=== PATIENT | female | born 1940 | race Caucasian/White ===

== ENCOUNTER 2024-01-27 15:27 | Emergency (ER) | payer OTHER, SELFPAY ==
[2024-01-27 15:41] VITALS: BP 163/80
[2024-01-27 16:24] LABS: % Basophils 0.6 % (0-2); % Eosinophils 3.3 % (0-6); % Immature Granulocytes 0.5 % (0-0.5); % Lymphocytes 30.8 % (20.5-51.1); % Monocytes 7.1 % (1.7-9.3); % Neutrophils 57.7 % (42.2-75.2); Absolute Eosinophils 0.2 10^3/uL (0-0.7); Absolute Monocytes 0.5 10^3/uL (0.1-0.6); Absolute Neutrophils 3.7 10^3/uL (1.4-6.5); Hemoglobin 13.5 g/dL (12.0-16.0); Mean Corp Hgb Conc. 34.6 g/dL (33.0-37.0); Mean Corpuscular Hgb 31.9 pg (27.0-31.0); Mean Corpuscular Volume 92.2 fL (81.0-99.0); Mean Platelet Volume 9.8 fL (7.4-10.4); Nucleated Red Blood Cells % 0 %; Platelet Count 212 10^3/uL (130-400); Red Blood Cell Count 4.23 10^6/uL (4.20-5.40); Red Cell Dist. Width 12.2 % (11.5-14.5); White Blood Cell Count 6.3 10^3/uL (4.8-10.8)
--- NOTE | 2024-01-27 16:52 | ED.GENMED ---
History of Present Illness
<Rebecca Cosby MD, Resident - Last Filed: 01/27/24 20:47>
General
Chief Complaint: Abdominal Symptoms
Source: patient and spouse
Exam Limitations: none
Time Seen by Provider: 01/27/24 16:22
Nursing documentation reviewed up to this point in time: agreed with
History of Present Illness
History of Present Illness:
83-year-old female history of A-fib on Eliquis, hypertension, hyperlipidemia who presented to the ED c/o abdominal pain with nausea x 3 hours. She had crackers and cream cheese with yogurt for lunch and shortly after developed worsening sharp,
crampy lower abdominal pain with nausea. She had a sensation of needing to have a bowel movement but had no success. She did have 1 episode of vomiting while in the ED. No sick contacts or recent antibiotic use. Last bowel movement was 5 days
ago. Patient used a fleets enema since onset of symptoms with no success. Recent COVID infection a few weeks ago with residual poor appetite and dysgeusia. She denies fever/chills, dysuria, urinary frequency, hematuria, back pain, or bloody stool.
Most recent colonoscopy in July revealed diverticulosis and benign polyp.
Past History
<Rebecca Cosby MD, Resident - Last Filed: 01/27/24 20:47>
Past History
ED Past Medical History: Arrthythmia (Afib), HTN and Hypercholesterolemia
ED Past Surgical History: Appendectomy, Cholecystectomy, Orthopedic (Left TKR) and Other (parathyroidectomy, ablation for afib)
Social History
Personal:
Living: with family
Family History
Family History: Other (not pertinent)
Review of Systems
<Rebecca Cosby MD, Resident - Last Filed: 01/27/24 20:47>
Review of Systems
Allergies reviewed?: Yes
Constitutional: Denies fever or chills
Respiratory: Denies cough or trouble breathing
Cardiac: Denies chest pain or palpitations
ABD/GI: Reports abdominal pain, nausea, vomiting and anorexia; Denies diarrhea or bloody stools
: Denies dysuria, frequency, flank pain, difficulty voiding or bleeding
Musculoskeletal: Denies back pain
Phy Exam
<Rebecca Cosby MD, Resident - Last Filed: 01/27/24 20:47>
General Physical Exam
General Presentation: well appearing and no apparent distress
General Skin: warm and dry
General Habitus: normal
General Mental: alert
General Hydration: appears well hydrated
Cardiovascular Exam
Cardiovascular Exam: regular rate/rhythm, no edema, no gallop and no murmur
Pulmonary Exam
Pulmonary Exam: lungs clear, no respiratory distress, no rales, no crackles, no rhonchi and no wheezing
Oxygen Status: room air
Gastrointestinal Exam
Gastrointestinal Exam: normal bowel sounds, soft, no organomegaly, non distended, no cva tenderness and tender (generalized tenderness)
Course
<Rebecca Cosby MD, Resident - Last Filed: 01/27/24 20:47>
Orders/Labs/Results
Orders:
Orders
01/27/24 15:46
Electrocardiogram (*1) Urgent
Reason for Study: Abdominal Pain
EKG- Treatment ONCE
01/27/24 15:53
CMP [Comprehensive Metabolic Panel] Urgent
Complete Blood Count/With Diff Urgent
Lipase Urgent
01/27/24 17:31
Ondansetron Injectable [Zofran] 4 mg IV NOW STA
01/27/24 17:32
0.9% Sodium Chloride 1000 ml [Nss] 1,000 ml IV BOLUS
01/27/24 18:13
Ketorolac [Toradol] 15 mg IV NOW STA
01/27/24 19:19
CT Abd/pel Without Iv Or Oral Urgent
Comment:
Reason For Exam: lower abdominal pain, allergy to dye
01/27/24 19:57
Amoxicillin 875 mg/Clav 125 mg [Augmentin 875 mg/125 mg] 1 tablet PO NOW STA
Abnormal Lab Results
01/27/24
15:53
MCH 31.9 H pg
(27.0-31.0)
Potassium 5.5 H mmol/L
(3.5-5.1)
BUN 25 H mg/dl
(7-17)
Glucose 150 H mg/dl
(70-99)
Total Protein 6.2 L g/dl
(6.3-8.2)
01/27/24 15:53
01/27/24 15:53
Vital Signs
Initial and Last Documented VS:
Initial Vital Signs
Temp Pulse Resp BP Pulse Ox
98.0 F 68 16 163/80 98
01/27/24 15:41 01/27/24 15:41 01/27/24 15:41 01/27/24 15:41 01/27/24 15:41
Last Documented Vital Signs
Temp Pulse Resp BP Pulse Ox
98.0 F 68 16 132/71 99
01/27/24 15:41 01/27/24 15:41 01/27/24 15:41 01/27/24 20:00 01/27/24 20:15
<Fadia Kraft, - Last Filed: 01/27/24 19:50>
Orders/Labs/Results
Orders:
Orders
01/27/24 15:46
Electrocardiogram (*1) Urgent
Reason for Study: Abdominal Pain
EKG- Treatment ONCE
01/27/24 15:53
CMP [Comprehensive Metabolic Panel] Urgent
Complete Blood Count/With Diff Urgent
Lipase Urgent
01/27/24 17:31
Ondansetron Injectable [Zofran] 4 mg IV NOW STA
01/27/24 17:32
0.9% Sodium Chloride 1000 ml [Nss] 1,000 ml IV BOLUS
01/27/24 18:13
Ketorolac [Toradol] 15 mg IV NOW STA
01/27/24 19:19
CT Abd/pel Without Iv Or Oral Urgent
Comment:
Reason For Exam: lower abdominal pain, allergy to dye
01/27/24 19:57
Amoxicillin 875 mg/Clav 125 mg [Augmentin 875 mg/125 mg] 1 tablet PO NOW STA
Abnormal Lab Results
01/27/24
15:53
MCH 31.9 H pg
(27.0-31.0)
Potassium 5.5 H mmol/L
(3.5-5.1)
BUN 25 H mg/dl
(7-17)
Glucose 150 H mg/dl
(70-99)
Total Protein 6.2 L g/dl
(6.3-8.2)
01/27/24 15:53
01/27/24 15:53
Vital Signs
Initial and Last Documented VS:
Initial Vital Signs
Temp Pulse Resp BP Pulse Ox
98.0 F 68 16 163/80 98
01/27/24 15:41 01/27/24 15:41 01/27/24 15:41 01/27/24 15:41 01/27/24 15:41
Last Documented Vital Signs
Temp Pulse Resp BP Pulse Ox
98.0 F 68 16 132/71 99
01/27/24 15:41 01/27/24 15:41 01/27/24 15:41 01/27/24 20:00 01/27/24 20:15
<Rebecca Cosby MD, Resident - Last Filed: 01/27/24 20:47>
MDM/Problems Addressed
Differential Diagnosis Includes:
Cystitis, diverticulitis, gastroenteritis, pancreatitis, colitis, intestinal obstruction
MDM/Problems Addressed:
Patient appears well, in no acute distress. CBC unremarkable, elevated potassium with elevated BUN likely secondary to dehydration. Lipase normal. EKG normal sinus rhythm.
Pt reports soft non-bloody bowel movement while in ED with ongoing symptoms.
Will give IV fluids. Will give Zofran to manage nausea. Given constipation x 5 days, and history of known diverticulosis on recent colonoscopy, will order CT abdomen and pelvis with IV contrast.
CT abd/pelvis (without contrast for history of adverse reaction with contrast) showed acute uncomplicated sigmoid diverticulitis. Augmentin started in ED. Patient was able to tolerate PO medication. Appears stable for discharge. Aftercare
instructions provided to patient. Discussed reasons to return or see her physician. Will discharge home with 7-day course of Augmentin, to follow up with PCP shortly
<Rebecca Cosby MD, Resident - Last Filed: 01/27/24 20:47>
*Critical Care Note
Total Time (30-74mins, 75-104mins- exclusive of procedures): Not Applicable
ED Attending Note
<Rebecca Cosby MD, Resident - Last Filed: 01/27/24 20:47>
-
Portions of this chart may have been created with voice recognition software.� Occasional wrong word or��sound alike� substitutions may have occurred due to the inherent limitations of voice recognition software.
<Fadia Kraft DO - Last Filed: 01/27/24 19:50>
ED Attending Note
Patient seen and examined by attending physician: Yes
I performed the substantive portion of visit, reviewed & personally made and approve the management plan that is documented in note by myself or SIN.: Yes
I performed a history and physical exam of patient and discussed management with resident, I reviewed resident's note and agree with documented findings and plan of care.: Yes
ED Attending Note:
83-year-old female with history of A-fib on Eliquis, hypertension, hyperlipidemia presenting to the emergency department for abdominal pain. Patient reports symptoms are about 3 hours prior to arrival with severe lower abdominal cramping and
nausea. Does report some constipation, last bowel movement was 5 days ago, however gave her an enema today and had a bowel movement here. Reports history of appendectomy and cholecystectomy. Denies fever. Vital signs on arrival are significant
for mild hypertension.
On exam, patient is well-appearing, no acute distress or discomfort. Benign cardiac and pulmonary exam. On abdominal exam, generalized tenderness, most focal to the right lower quadrant and left lower quadrant. Differential considerations include
bowel obstruction versus enteritis versus gastroenteritis versus diverticulitis versus cystitis. Plan for laboratory analysis, urinalysis, CT abdominal imaging. IV fluids, Zofran, Toradol administered for symptoms.
19:45 -CT is consistent with acute uncomplicated diverticulitis. Feel the patient is a candidate for oral antibiotics, hemodynamic stability. Will start on Augmentin. Otherwise feel stable for discharge, however strict return precautions were
communicated and patient verbalized understanding
Discharge Plan
Departure
Patient Disposition: Home (Routine Discharge)
Date of Disposition: 01/27/24
Time of Disposition: 20:45
Patient with high blood pressure during this ER visit?: Yes
Discharge Problem:
Diverticulitis
Instructions: Diverticulitis (DC), BLOOD PRESSURE
Prescriptions:
New
amoxicillin-pot clavulanate 875-125 mg tablet
1 tab PO BID Qty: 13 0RF
Referrals:
Owen Kraft MD [Family Provider] -
Activity Restrictions/Additional Instructions:
Follow up with PCP shortly
Interventions
Interventions:
*Risk Screen - Suicide Last Done: 01/27/24 17:57
*General Assessment Last Done: 01/27/24 17:57
*Neglect/Abuse Screening Last Done: 01/27/24 17:57
ED- Fall Risk Assessment Last Done: 01/27/24 17:57
*ED COVID-19 Vaccine History Last Done: 01/27/24 17:57
PP-Lkpnwg-Ijnbrkepvn Assessment Last Done: 01/27/24 17:57
Discharge Date and Time
Print Language: TAMAZIGHT
[2024-01-27 16:58] LABS: ALT (SGPT) 35 U/L (0-35); AST (SGOT) 35 U/L (14-36); Albumin 4.3 g/dl (3.5-5.0); Alkaline Phosphatase 50 U/L (38-126); Blood Urea Nitrogen 25 mg/dl (7-17); Carbon Dioxide 23 mmol/L (22-30); Chloride 101 mmol/L (98-107); Glucose 150 mg/dl (70-99); Lipase 29 U/L (23-300); Potassium 5.5 mmol/L (3.5-5.1); Sodium 137 mmol/L (135-145); Total Bilirubin 0.4 mg/dl (0.2-1.3); Total Protein 6.2 g/dl (6.3-8.2); eGFR > 60.00
[2024-01-27] MEDS: ZOFRAN 4 MG IV (17:47)
[2024-01-27] MEDS: NSS 1000 IV (17:47)
[2024-01-27] MEDS: TORADOL 15 MG IV (18:40)
[2024-01-27 19:49] VITALS: BP 140/73
[2024-01-27 20:00] VITALS: BP 132/71
[2024-01-27] MEDS: AUGMENTIN 875 MG/125 MG 1 TABLET PO (20:24)
== END 2024-01-27 21:03 | disposition home or self-care (01) ==
LOC: EMR 15:27
PROVIDERS: EMERGENCY PHYSICIAN Student in an Organized Health Care Education/Training Program; FAMILY PHYSICIAN Internal Medicine
DX: K57.32 Diverticulitis of large intestine without perforation or abscess without bleeding (principal); R11.2 Nausea with vomiting, unspecified; I48.91 Unspecified atrial fibrillation; I10 Essential (primary) hypertension; E78.00 Pure hypercholesterolemia, unspecified; M06.9 Rheumatoid arthritis, unspecified; Z86.16 Personal history of COVID-19; Z79.01 Long term (current) use of anticoagulants; Z90.49 Acquired absence of other specified parts of digestive tract
CPT/HCPCS: 99284; 96374; 96375; 96361; 74176; 80053; 83690; 85025; 93005

== ENCOUNTER 2025-04-19 15:14 | Emergency (ER) | payer OTHER, SELFPAY ==
[2025-04-19 15:18] VITALS: BP 175/89
--- NOTE | 2025-04-19 15:51 | ED.GENMED ---
History of Present Illness
General
Chief Complaint: Abdominal Pain
Source: patient and spouse
Exam Limitations: none
Time Seen by Provider: 04/19/25 15:39
Nursing documentation reviewed up to this point in time: agreed with
History of Present Illness
History of Present Illness:
Patient is an 84-year-old female with history atrial fibrillation on Eliquis, hypertension, hyperlipidemia who presents to the emergency department for evaluation of lower abdominal pain. Patient states symptoms started somewhat acutely around 1 PM
today while at home. She describes a sharp, stabbing pain in her central lower abdomen quadrant. She denies any radiation around the back. She has had a continuous feeling of eating had a bowel movement as well as nausea. No dysuria or
hematuria. No vomiting or fever. No chest pain or shortness of breath.
Patient does have a history of diverticulitis but 1 year ago and states the symptoms feel very similar.
Patient states she had oatmeal for breakfast. She had not yet eaten lunch when pain began.
Past History
Past History
ED Past Medical History: Arrthythmia (Afib), HTN and Hypercholesterolemia
ED Past Surgical History: Appendectomy, Cholecystectomy, Orthopedic (Left TKR) and Other (parathyroidectomy, ablation for afib)
Social History
Tobacco: Non-smoker
Alcohol: None
Drug: None
Personal:
Living: with family
Family History
Family History: Other (not pertinent)
Review of Systems
Review of Systems
Allergies reviewed?: Yes
All Other Systems: ROS reviewed and negative except as documented in HPI and ROS
Phy Exam
Physical Exam
Physical Exam:
Vitals: Hypertensive, otherwise vital signs stable.
General: Patient is well appearing, no acute distress. Nontoxic in
Skin: Warm and dry, no rashes or lesions
Head: Normocephalic, atraumatic
Eyes: Sclera nonicteric.
Throat: Protecting airway
Neck: Normal ROM, no cervical spine tenderness, no meningismus
Cardiac: Regular rate and rhythm, no murmurs.
Pulm: Normal respiratory effort. Lungs clear bilaterally
Abdomen: Soft. Mild tenderness in suprapubic/left lower quadrant. No rebound or guarding. No CVA tenderness
Extremities: No evidence of cyanosis or edema
Neuro: AAOx3. Grossly intact
Psychiatric: Normal affect.
Course
Orders/Labs/Results
Orders:
Orders
04/19/25 15:49
0.9% Sodium Chloride 500 ml [Nss] 500 ml IV BOLUS
Acetaminophen [Tylenol] 650 mg PO NOW STA
Ondansetron Injectable [Zofran] 4 mg IV NOW STA
04/19/25 15:50
CT Abd/pelvis W Iv Cont Urgent
Comment: hx diverticulitis
Reason For Exam: LLQ/ suprapubic pain
04/19/25 16:01
Complete Blood Count/With Diff Urgent
Comprehensive Metabolic Panel Urgent
Lipase Urgent
Osmolality, Random Urine Urgent
Date Specimen was Collected: 04/19/25
Time Specimen was Collected: 15:44
Comment: ADD ON
Urinalysis Reflex To Culture Urgent
Date Specimen was Collected: 04/19/25
Time Specimen was Collected: 15:44
Urine Sodium Urgent
Date Specimen was Collected: 04/19/25
Time Specimen was Collected: 15:44
Comment: ADD ON
04/19/25 16:15
Diphenhydramine [Benadryl] 50 mg IV NOW STA
Hydrocortisone Sod Succinate [Solu-Cortef] 200 mg IV NOW STA
04/19/25 18:40
0.9% Sodium Chloride 500 ml [Nss] 500 ml IV BOLUS
04/19/25 18:41
0.9% Sodium Chloride 500 ml [Nss] 500 ml IV BOLUS
04/19/25 19:21
Basic Metabolic Panel Urgent
Serum Osmolality Urgent
Comment: ADD ON
04/19/25 20:00
Add On- LAB Urgent
Tests Added?: serum osmlality, urine sodium, urine osmolality
Abnormal Lab Results
04/19/25 04/19/25
16:01 19:21
RBC 4.11 L 10^6/uL
(4.20-5.40)
MCH 31.9 H pg
(27.0-31.0)
Absolute Monos (auto) 0.9 H 10^3/uL
(0.1-0.6)
Monocytes % 9.9 H %
(1.7-9.3)
Sodium 127 L mmol/L 131 L mmol/L
(135-145) (135-145)
Chloride 97 L mmol/L
(98-107)
Calcium 8.2 L mg/dl
(8.4-10.2)
Urine Sodium 114 H mmol/L
(30-90)
04/19/25 16:01
04/19/25 19:21
Vital Signs
Initial and Last Documented VS:
Initial Vital Signs
Pulse Resp BP Pulse Ox
72 18 175/89 99
04/19/25 15:18 04/19/25 15:18 04/19/25 15:18 04/19/25 15:18
Last Documented Vital Signs
Pulse Resp BP Pulse Ox
74 10 165/72 99
04/19/25 20:15 04/19/25 20:15 04/19/25 20:04 04/19/25 20:15
MDM/Problems Addressed
Differential Diagnosis Includes:
Not limited to: Diverticulitis, colitis, constipation, renal colic, pyelonephritis, cystitis, etc.
MDM/Problems Addressed:
84-year-old female with left lower quadrant/suprapubic abdominal pain today with mild nausea. No episodes of vomiting, urinary symptoms, diarrhea. History of diverticulitis with similar presenting symptoms. Patient is afebrile on arrival with stable
vital signs. On exam, she appears well and nontoxic. Her abdomen is soft with mile tenderness in suprapubic/LLQ. No rebound or guarding. Cardio/pulmonary assessment unremarkable.
CBC without abnormal findings. No leukocytosis or left shift. Incidentally noted hyponatremia of 127 which I suspect to be secondary to dehydration. Will recheck after a liter of IV fluids. Will send sodium studies. She is asymptomatic.
CT shows findings of diverticulosis of sigmoid colon without evidence of acute diverticulitis. No other acute intra-abdominal pathology noted. Her urine sample shows no evidence of infection or red blood cells.
Fortunately � her sodium level did increase to 131 following IV fluids. This does point towards more of a pre-renal etiology due to dehydration.
Ultimately � feel stable for discharge home. Given similarity to prior diverticulitis flares � will provide prescription for course of antibiotics if symptoms persist and/or worsen. In regard to hyponatremia � advised patient to stay well hydrated
and have primary care provider repeat lab work in a few weeks. Strict return precautions discussed. Patient comfortable with plan.
Chronic conditions affecting care:
History of diverticulitis
Acute Exacerbation and/or Progression of Chronic Illness:
N/A
*Radiology
Radiology exam reviewed: radiology read reviewed
*Pulse Oximetry
SaO2: 99
Oxygen Mode of Delivery: Room air
Patient hypoxic: no
*EKG
Interpreted by ED Provider?: NA
*Computer Video Game Designer Interpretation
Rate: Computer Video Game Designer- N/A
*Critical Care Note
Total Time (30-74mins, 75-104mins- exclusive of procedures): Not Applicable
ED Attending Note
-
Portions of this chart may have been created with voice recognition software.� Occasional wrong word or��sound alike� substitutions may have occurred due to the inherent limitations of voice recognition software.
Discharge Plan
Departure
Patient Disposition: Home (Routine Discharge)
Date of Disposition: 04/19/25
Time of Disposition: 20:12
Patient with high blood pressure during this ER visit?: Yes
Condition: Good
Discharge Problem:
Abdominal pain, Hyponatremia
Instructions: Abdominal Pain, BLOOD PRESSURE
Prescriptions:
New
amoxicillin-pot clavulanate 875-125 mg tablet
1 tab PO BID Qty: 14 0RF
No Action
amoxicillin-pot clavulanate 875-125 mg tablet
1 tab PO BID Qty: 13 0RF
Referrals:
Owen Kraft MD [Family Provider, Internal Medicine] - Follow up in 1 week
Activity Restrictions/Additional Instructions:
RETURN TO THE EMERGENCY DEPARTMENT WITH ANY FEVER, PERSISTENT/WORSENING ABDOMINAL PAIN, INTRACTABLE NAUSEA OR VOMITING, DIZZINESS/LIGHTHEADEDNESS, BALANCE DIFFICULTIES, WORSENING CURRENT SYMPTOMS, OR ANY OTHER CONCERNS
- As discussed your sodium level was low today in the emergency department. I suspect this is likely due to dehydration as it is trending up after IV fluids. However, please follow-up with your primary care provider for repeat lab work in a few
weeks to ensure remains stable.
- Your CT scan did not show any evidence of acute diverticulitis. I did send you home with a prescription for antibiotic if pain persists which you can start in 2 days
- Please stay well-hydrated. I recommend a low fiber diet over the next few days.
-Follow-up with your primary care provider for further evaluation/management to ensure that your symptoms are improving
Monitor your symptoms closely and return to the emergency department with any worsening/new symptoms or any other concerns
Interventions
Interventions:
*Risk Screen - Suicide Last Done: 04/19/25 15:14
*General Assessment Last Done: 04/19/25 15:18
*Neglect/Abuse Screening Last Done: 04/19/25 15:18
*ED COVID-19 Vaccine History Last Done: 04/19/25 16:41
*ED Influenza Vaccine History Last Done: 04/19/25 16:41
[facility] Risk Assessment Tool Last Done: 04/19/25 16:41
*Nursing Disposition Last Done: 04/19/25 20:31
HK-Rhwvsg-Yayvvdfian Assessment Last Done: 04/19/25 16:41
Discharge Date and Time
Print Language: SWISS
[2025-04-19 16:11] VITALS: BP 176/77
[2025-04-19 16:17] LABS: Urine Character Clear (Clear)
[2025-04-19 16:19] LABS: Hematocrit 38.6 % (37.0-47.0); Hemoglobin 13.1 g/dL (12.0-16.0); Mean Corp Hgb Conc. 33.9 g/dL (33.0-37.0); Mean Corpuscular Volume 93.9 fL (81.0-99.0); Nucleated Red Blood Cells % 0 %; Platelet Count 184 10^3/uL (130-400); Red Cell Dist. Width 12.1 % (11.5-14.5)
[2025-04-19] MEDS: NSS 500 IV ×2 (16:19→18:41)
[2025-04-19] MEDS: TYLENOL 650 MG PO (16:20)
[2025-04-19] MEDS: ZOFRAN 4 MG IV (16:20)
[2025-04-19] MEDS: BENADRYL 50 MG IV (16:21)
[2025-04-19] MEDS: SOLU-CORTEF 200 MG IV (16:24)
[2025-04-19 16:39] LABS: ALT (SGPT) 27 U/L (0-35); AST (SGOT) 32 U/L (14-36); Albumin 4.7 g/dl (3.5-5.0); Alkaline Phosphatase 42 U/L (38-126); Blood Urea Nitrogen 17 mg/dl (7-17); Calcium 8.8 mg/dl (8.4-10.2); Carbon Dioxide 26 mmol/L (22-30); Chloride 97 mmol/L (98-107); Glucose 97 mg/dl (70-99); Lipase 40 U/L (23-300); Potassium 4.5 mmol/L (3.5-5.1); Sodium 127 mmol/L (135-145); Total Protein 6.8 g/dl (6.3-8.2); eGFR > 60.00
[2025-04-19 16:41] VITALS: BMI 23.2
[2025-04-19 17:28] VITALS: BP 148/74
[2025-04-19 19:50] LABS: Blood Urea Nitrogen 15 mg/dl (7-17); Calcium 8.2 mg/dl (8.4-10.2); Carbon Dioxide 24 mmol/L (22-30); Chloride 101 mmol/L (98-107); Estimated Creatinine Clearance 68 ml/min; Glucose 97 mg/dl (70-99); Potassium 4.4 mmol/L (3.5-5.1); Sodium 131 mmol/L (135-145); eGFR > 60.00
[2025-04-19 20:04] VITALS: BP 165/72
== END 2025-04-19 20:31 | disposition home or self-care (01) ==
LOC: EMR 15:14
PROVIDERS: Physician Assistant; EMERGENCY PHYSICIAN Emergency Medicine; FAMILY PHYSICIAN Internal Medicine
DX: R10.32 Left lower quadrant pain (principal); E87.1 Hypo-osmolality and hyponatremia; E86.0 Dehydration; I48.91 Unspecified atrial fibrillation; I10 Essential (primary) hypertension; E78.00 Pure hypercholesterolemia, unspecified; Z79.01 Long term (current) use of anticoagulants; Z96.652 Presence of left artificial knee joint
CPT/HCPCS: 99284; 96374; 96375 ×2; 96361 ×2; 74177; 80048; 80053; 81003; 83690; 83930; 83935; 84300; 85025; Q9967